=== PATIENT | female | born 1990 | race Caucasian/White ===

== ENCOUNTER 2017-01-20 21:22 | Emergency (ER) | payer SELFPAY ==
[2017-01-20 21:54] VITALS: BP 122/61
[2017-01-20] MEDS ORDERED: Amoxicillin CAP* 500 MG PO ONE (22:00)
--- NOTE | 2017-01-20 22:06 | ED ---
Throat Pain/Nasal Congestion - HPI Summary HPI Summary: 26 yr old female with pain in left upper tooth and left ear. Onset earlier today. Pain is 5/10. Not worse with anything in particular. She has had prior dental issues with some bad teeth in the same area. No facial swelling. No fever, no chills. - History of Current Complaint Chief Complaint: UCEar Time Seen by Provider: 01/20/17 21:56 - Allergies/Home Medications Allergies/Adverse Reactions: Allergies Allergy/AdvReac Type Severity Reaction Status Date / Time No Known Allergies Allergy Verified 01/20/17 21:50 PMH/Surg Hx/FS Hx/Imm Hx - Surgical History Surgery Procedure, Year, and Place: denies Infectious Disease History: No Infectious Disease History: Denies: Traveled Outside the [place] in Last 30 Days - Family History Known Family History: Positive: Diabetes - Social History Lives: With Family Alcohol Use: None Substance Use Type: Reports: None Smoking Status (MU): Never Smoked Tobacco Review of Systems Constitutional: Negative Eyes: Negative Positive: Dental Pain All Other Systems Reviewed And Are Negative: Yes Physical Exam Triage Information Reviewed: Yes Vital Signs On Initial Exam: Initial Vitals Temp Pulse Resp BP Pulse Ox 98.4 F 66 16 122/61 100 01/20/17 21:50 01/20/17 21:50 01/20/17 21:50 01/20/17 21:50 01/20/17 21:50 Vital Signs Reviewed: Yes Appearance: Positive: Well-Appearing Skin: Positive: Warm Head/Face: Positive: Normal Head/Face Inspection Eyes: Positive: Normal, EOMI ENT: Positive: TMs normal Dental: Positive: Gross Decay/Caries @ - upper left teeth Neck: Positive: Supple, Nontender Respiratory/Lung Sounds: Positive: Clear to Auscultation, Breath Sounds Present Cardiovascular: Positive: Normal, RRR Musculoskeletal: Positive: Normal Neurological: Positive: Normal, Sensory/Motor Intact, Alert, Oriented to Person Place, Time, CN Intact II-III Psychiatric: Positive: Normal Diagnostics - Vital Signs Vital Signs Temp Pulse Resp BP Pulse Ox 01/20/17 21:50 98.4 F 66 16 122/61 100 - Laboratory Lab Statement: Any lab studies that have been ordered have been reviewed, and results considered in the medical decision making process. EENT Course/Dx - Course Course Of Treatment: 26 yr old with left ear pain and dental cavities. I believe the source of pain is her teeth. TMs normal. No obvious swelling or abscess. She will be put on amoxicillin. Tylenol for pain since breast feeding baby. - Diagnoses Provider Diagnoses: Pain due to dental caries Discharge - Discharge Plan Condition: Good Disposition: HOME Prescriptions: Amoxicillin CAP* [Amoxicillin 500 MG CAP*] 500 mg PO TID #30 cap Patient Education Materials: Toothache (ED) Referrals: Patti Ferreira MD [Primary Care Provider] -
== END 2017-01-20 22:05 | disposition home or self-care (01) ==
LOC: UCCORT 21:22
DX: K02.9 Dental caries, unspecified (principal)
CPT/HCPCS: 99212; A9270-GY; G0463

== ENCOUNTER 2018-09-02 15:14 | Emergency (ER) | payer OTHER ==
[2018-09-02 16:27] VITALS: BP 117/66
--- NOTE | 2018-09-02 16:51 | UC ---
Complaint Female HPI - HPI Summary HPI Summary: Pt c/o gradual onset of low back and pelvic pain that began ~ 6 weeks ago. Pt has hx of low back pain but states that her "usual interventions have not been working". Pt also c/o urinary urgency, frequency, thick malodorous vaginal discharge, c/o of vaginal itching. Pt denies risk for STD's. Denies risk for . - History Of Current Complaint Chief Complaint: UCBackPain Stated Complaint: BACK PAIN Time Seen by Provider: 09/02/18 16:37 Hx Obtained From: Patient Hx Last Menstrual Period: 08/2018 ?: No Onset/Duration: Gradual Onset, Lasting Weeks, Still Present Timing: Constant Severity Initially: Mild Severity Currently: Mild Pain Intensity: 7 Character: Dull Aggravating Factor(s): Movement, Urination Alleviating Factor(s): Nothing Associated Signs And Symptoms: Positive: Back Pain, Vaginal Discharge - Risk Factors Ectopic Risk Factor: Negative Ovarian Torsion Risk Factor: Reproductive Age - Allergies/Home Medications Allergies/Adverse Reactions: Allergies Allergy/AdvReac Type Severity Reaction Status Date / Time No Known Allergies Allergy Verified 09/02/18 16:20 Home Medications: Home Medications NK [No Home Medications Reported] 09/02/18 [History Confirmed 09/02/18] PMH/Surg Hx/FS Hx/Imm Hx Previously Healthy: Yes - Surgical History Surgical History: None Surgery Procedure, Year, and Place: denies - Family History Known Family History: Positive: Diabetes - Social History Occupation: Employed Full-time Lives: With Family Alcohol Use: None Substance Use Type: None Smoking Status (MU): Never Smoked Tobacco Have You Smoked in the Last Year: No - Immunization History Most Recent Influenza Vaccination: no Review of Systems All Other Systems Reviewed And Are Negative: Yes Constitutional: Positive: Negative Skin: Positive: Negative Eyes: Positive: Negative ENT: Positive: Negative Respiratory: Positive: Negative Cardiovascular: Positive: Negative Gastrointestinal: Positive: Abdominal Pain Genitourinary: Positive: Frequency, Urgency, Vaginal/Penile Itching, Vaginal/ Penile Discharge Motor: Positive: Negative Neurovascular: Positive: Negative Musculoskeletal: Positive: Negative Neurological: Positive: Negative Psychological: Positive: Negative Is Patient Immunocompromised?: No Physical Exam Triage Information Reviewed: Yes Appearance: Well-Appearing Vital Signs: Initial Vital Signs Temp 99.1 F 09/02/18 16:21 Pulse 77 09/02/18 16:21 Resp 15 09/02/18 16:21 BP 117/66 09/02/18 16:21 Pulse Ox 100 09/02/18 16:21 Vital Signs Reviewed: Yes Eye Exam: Normal ENT Exam: Normal Dental Exam: Normal Neck exam: Normal Respiratory Exam: Normal Cardiovascular Exam: Normal Abdominal Exam: Normal Abdomen Description: Positive: Nontender Musculoskeletal Exam: Normal Neurological Exam: Normal Psychological Exam: Normal Skin Exam: Normal Complaint Female Dx - Course Course Of Treatment: Pt was offered pelvic exam and pt declined pelvic exam in favor of f/u with PCP. Pt was also offered option to self swab with AFfirm and have STD testing and test. All options declined. - Differential Dx/Diagnosis Provider Diagnosis: Pelvic pain Discharge - Sign-Out/Discharge Documenting (check all that apply): Patient Departure All imaging exams completed and their final reports reviewed: No Studies - Discharge Plan Condition: Stable Disposition: HOME Patient Education Materials: Pelvic Pain in Women (ED), Acute Low Back Pain (ED ) Referrals: [facility] [Outside] - If Needed Patti Ferreira MD [Primary Care Provider] - Additional Instructions: Please follow up with your PCP as soon as possible. - Billing Disposition and Condition Condition: STABLE Disposition: Home
== END 2018-09-02 16:58 | disposition home or self-care (01) ==
LOC: UCCORT 15:14
DX: R10.2 Pelvic and perineal pain (principal)
CPT/HCPCS: 81003; 99211; G0463